=== PATIENT | female | born 1975 | race Caucasian/White ===

== ENCOUNTER → 2017-09-05 | Outpatient (CLI) | payer OTHER ==
[~2017-09-05] MED LIST: CYMBALTA60 MG PO; FLEXERIL10 MG PO; GABAPENTIN300 MG PO; LIPITOR20 MG PO
== END | disposition home or self-care (01) ==
LOC: CDC 09:45
DX: Z01.810 Encounter for preprocedural cardiovascular examination (principal); M54.16 Radiculopathy, lumbar region; D49.2 Neoplasm of unspecified behavior of bone, soft tissue, and skin
CPT/HCPCS: 93000

== ENCOUNTER 2017-09-09 22:01 | Inpatient (IN) | payer OTHER ==
[~2017-09-09] VITALS: Ht 167.6 cm; Wt 106.5 kg
[2017-09-10 11:04] VITALS: BP 121/60
[2017-09-10 17:58] VITALS: BP 102/55
[2017-09-10 19:40] VITALS: BP 115/54
[2017-09-10 23:32] VITALS: BP 114/54
[2017-09-11 03:26] VITALS: BP 115/55
[2017-09-11 07:43] VITALS: BP 108/55
[2017-09-11 15:25] VITALS: BP 122/75
[2017-09-11 15:30] VITALS: BP 112/56
[2017-09-11] MEDS ORDERED: ENDOCET 5-3251 EACH PO (19:38)
[2017-09-11] MEDS ORDERED: DIAZEPAM10 MG PO (19:38)
[2017-09-11 19:59] VITALS: BP 116/59
== END 2017-09-11 20:28 | disposition home or self-care (01) | DRG 460 ==
LOC: ENRESERV 22:01 → 2SOUTH 09-10 10:26 → 3EAST 09-10 10:26 → 2SOUTH 09-10 13:13 → ENRESERV 09-10 16:08 → 3EAST 09-10 17:37
DX: M54.16 Radiculopathy, lumbar region (principal); M53.3 Sacrococcygeal disorders, not elsewhere classified; D36.17 Benign neoplasm of peripheral nerves and autonomic nervous system of trunk, unspecified; D49.2 Neoplasm of unspecified behavior of bone, soft tissue, and skin; F17.200 Nicotine dependence, unspecified, uncomplicated; M79.9 Soft tissue disorder, unspecified; M54.5 Low back pain; E66.9 Obesity, unspecified; Z68.37 Body mass index [BMI] 37.0-37.9, adult; M79.7 Fibromyalgia
CPT/HCPCS: 72100; 76000; 88305; 88331; 88342 TC; 95938; G0378; J0131; J0330; J0690; J1100; J1170; J1580; J2250; J2405; J2710; J2765; J2930; J3010; J3370; J3480; S0020